=== PATIENT | male | born 1955 | race Caucasian/White ===

== ENCOUNTER 2021-04-28 12:56 | Outpatient (CLI) | payer BC ==
[2021-04-28 14:55] LABS: Mean Corpuscular HGB CONC 34.2 g/dL (32.0-36.0); Mean Corpuscular Hemoglobin 31.3 pg (27.0-33.0); Mean Corpuscular Volume 91.4 fl (81.2-95.1); Mean Platelet Volume 10.9 fl (7.4-10.4); Platelet Count 200 10x3/uL (150-450); RBC Distribution Width 11.9 % (11.5-14.5); Red Blood Cell (RBC) Count 4.79 10x6/uL (4.32-5.72); White Blood Cell (WBC) Count 6.9 10x3/uL (3.5-10.5)
[2021-04-28 15:09] LABS: PTT 24.9 sec (22.0-33.0)
[2021-04-29 12:50] LABS: SARS-CoV-2 PCR by NAA Not Detected (NotDetected)
== END 2021-04-28 12:57 | disposition home or self-care (01) ==
LOC: LABBT 12:56
PROVIDERS: ATTEND Neurological Surgery
DX: Z01.818 Encounter for other preprocedural examination (principal); M51.26 Other intervertebral disc displacement, lumbar region; Z20.822 Contact with and (suspected) exposure to COVID-19
CPT/HCPCS: 85027; 85610; 85730; 93005; 93010; U0003; U0005

== ENCOUNTER 2021-05-01 05:42 | Day surgery (SDC) | payer BC ==
[2021-04-29 15:23] VITALS: BMI 30.6
[2021-05-01] MEDS ORDERED: EPINEPHrine 1 MG/ML AMP ONE (06:10)
[2021-05-01] MEDS ORDERED: Thrombin 5000 UNITS/5 ML VIAL ONE (06:10)
[2021-05-01] MEDS ORDERED: Bupivacaine PF 0.5% 30 ML VIAL ONE (06:10)
[2021-05-01] MEDS ORDERED: Neomycin-Polymyxin 1 ML AMP ONE (06:10)
[2021-05-01] MEDS ORDERED: Levofloxacin 500 mg/D5W 100 ml Premix Bag ONE (06:19)
[2021-05-01] MEDS ORDERED: Clindamycin/D5W 900 mg/50 ml Premix Bag ONE (06:19)
[2021-05-01] MEDS ORDERED: Fentanyl 100 MCG/2 ML VIAL ONE (06:36)
[2021-05-01] MEDS ORDERED: Ondansetron PF 4 MG/2 ML Vial ONE (06:57)
[2021-05-01] MEDS ORDERED: Dexamethasone 20 MG/5 ML VIAL ONE (06:57)
[2021-05-01] MEDS ORDERED: Ketorolac Tromethamine 30 MG/ML VIAL ONE (06:57)
[2021-05-01] MEDS ORDERED: ePHEDrine Sulfate 50 MG/10 ML VIAL ONE (06:57)
[2021-05-01] MEDS ORDERED: Lidocaine 1% PF 5 ML VIAL ONE (06:57)
[2021-05-01] MEDS ORDERED: Rocuronium Bromide 10 MG/ML (10ML VIAL) ONE (06:57)
[2021-05-01] MEDS ORDERED: PROPOFOL 200 MG/20 ML VIAL ONE (06:57)
[2021-05-01] MEDS ORDERED: SUGAMMADEX SODIUM 200 MG/2 ML VIAL ONE (08:40)
[2021-05-01] MEDS ORDERED: Meperidine HCl/PF 25 MG/ML VIAL ONE (09:13)
[2021-05-01] MEDS ORDERED: tiZANidine HCl 4 MG TAB PO PRN (10:01)
[2021-05-01] MEDS ORDERED: traMADol HCl 50 MG TAB PO PRN ×2 (10:01)
[2021-05-01] MEDS ORDERED: Morphine 2 MG/ML VIAL SLOW IVP PRN (10:01)
[2021-05-01] MEDS ORDERED: Ondansetron PF 4 MG/2 ML Vial IVP PRN (10:01)
[2021-05-01] MEDS ORDERED: Morphine 4 MG/ML VIAL SLOW IVP PRN (10:01)
[2021-05-01] MEDS ORDERED: Sodium Chloride 0.9% 1,000 ML IV SCH (10:15)
[2021-05-01] MEDS ORDERED: Scopolamine 1.5 mg/72 hour Patch TD SCH (11:00)
[2021-05-01] MEDS ORDERED: CEFAZOLIN 2 GM in Premix Bag 1 BAG IVPB SCH (14:00)
[2021-05-01] MEDS ORDERED: Gabapentin 300 MG CAP PO SCH (21:00)
[2021-05-02] MEDS ORDERED: Tamsulosin HCl 0.4 MG CAP PO SCH (06:00)
[2021-05-02] MEDS ORDERED: Losartan 25 MG TAB PO SCH (09:00)
== END 2021-05-01 12:00 | disposition home or self-care (01) ==
LOC: SDC 05:42
PROVIDERS: ATTEND Neurological Surgery
PROC: 0ST20ZZ Resection of Lumbar Vertebral Disc, Open Approach (ICD-10-PCS; principal; 2021-05-01)
DX: M51.16 Intervertebral disc disorders with radiculopathy, lumbar region (principal); I10 Essential (primary) hypertension; Z79.899 Other long term (current) drug therapy; Z88.0 Allergy status to penicillin; Z88.5 Allergy status to narcotic agent
CPT/HCPCS: J0171; J1956; J2175; J3010; J3370; J3490; S0020